=== PATIENT | female | born 1995 | race Caucasian/White ===

== ENCOUNTER 2022-12-05 05:12 | Emergency (ER) | payer BC, SELFPAY ==
[2022-12-05 05:14] VITALS: BP 128/96; PULSE 89; RESP 16; TEMP 36.6; O2SAT 98; BMI 23.4
--- NOTE | 2022-12-05 05:34 | EX.ED.DYSGE1 ---
HPI History of Present Illness Chief Complaint: Abd Pain Informant: patient Onset/Context/Timing Onset: Yesterday Context: Gradual Onset Current Severity: Moderate Maximum Severity: Severe Narrative Narrative: Patient presents with epigastric abdominal pain and is concerned that she is having a pancreatitis flare. She is a history of idiopathic pancreatitis and has had multiple work-ups with no definitive cause. She states this particular episode started about 24 hours ago. Usually she will follow a bland diet go about her business and pain will subside, however patient states this episode is persisting. She has had nausea but no vomiting. [facility] Medical History Pancreatitis Home Medications hydrocodone-acetaminophen 5-325mg 5mg-325mg 1 tab PO Q6H PRN PRN Pain 3 days #10 TABLETS 12/05/22 [Rx Last Taken Unknown] ondansetron 4 mg disintegrating tablet 4 mg PO Q8H PRN PRN Nausea #10 tabs 12/05/22 [Rx Last Taken Unknown] Allergy/AdvReac Type Severity Reaction Status Date / Time morphine Allergy Itching Verified 12/05/22 05:13 Surgical History no surgical history Social History Smoking Status: Never smoker ROS ROS ED Constitutional Constitutional ED: Denies chills or fever(s) Eyes Eyes: Denies change in vision or discharge from eye(s) ENT ENT ED: Denies discharge from eye(s), rhinorrhea or sore throat Cardiovascular Cardiovascular: Denies chest pain or palpitations Respiratory/Chest Respiratory/Chest: Denies cough or dyspnea Gastrointestinal Gastrointestinal: Reports abdominal pain and nausea; Denies diarrhea or vomiting Genitourinary Genitourinary ED: Denies dysuria Musculoskeletal Musculoskeletal: Denies back pain or extremity pain Integumentary Denies Abrasions or rash Neurologic Neurologic: Denies headache(s) or weakness Psychiatric Psychiatric: Denies anxiety or depression Allergic/Immunologic Allergic/Immunologic ED: Denies lip swelling or urticaria EXAM Physical Exam Const Vital Signs: 12/05/22 05:14 Temperature 97.8 F Temperature Source Temporal Pulse Rate 89 Respiratory Rate 16 Blood Pressure 128/96 H Blood Pressure Mean 106 Pulse Ox 98 Oxygen Delivery Method Room Air Positive well nourished and well developed General Appearance ED: well developed HEENT Reports normocephalic and head/scalp atraumatic Eyes PERRL and EOMs intact bilaterally Neck supple Chest Wall inspection of chest normal and palpation of chest normal Resp normal respiratory effort and clear to auscultation bilaterally Cardio regular rate and regular rhythm GI GI Narrative: Epigastric abdominal tenderness to palpation. No guarding or rebound. Hypoactive bowel sounds noted. Palpation: soft Back/Spine no CVA tenderness Extremity normal to inspection Neuro oriented x3 and no sensory deficits noted Sensorium / Orientation: alert Motor Exam: strength 5/5 throughout Psych Mood & Affect: tearful Skin no rashes or lesions noted MDM MDM MDM Narrative Medical decision making narrative: Patient was given a small dose of Dilaudid and Zofran along with IV fluids. Labwork obtained to evaluate for leukocytosis, anemia, and electrolyte derangement. Lab Data Attestation: I reviewed the patient's lab results. Labs: Laboratory Results - last 24 hr 12/05/22 12/05/22 12/05/22 05:36 05:36 05:36 WBC 5.6 RBC 4.45 Hgb 13.8 Hct 41.1 MCV 92.4 MCH 31.0 MCHC 33.6 RDW Std Deviation 40.6 RDW Coeff of Deepthi 12.0 Plt Count 250 MPV 9.7 Immature Gran % (Auto) 0.200 Neut % (Auto) 58.3 Lymph % (Auto) 17.8 L Crook % (Auto) 17.6 H Eos % (Auto) 5.4 H Baso % (Auto) 0.7 Absolute Neuts (auto) 3.2 Absolute Lymphs (auto) 0.99 Nucleated RBC % 0 Sodium 140 Potassium 3.8 Chloride 111 H Carbon Dioxide 21.0 Anion Gap 8 BUN 12 Creatinine 0.66 Estim Creat Clear Calc 102.16 Est GFR (MDRD) Af Amer 139 Est GFR (MDRD) Non-Af 115 BUN/Creatinine Ratio 18.2 Glucose 105 Calcium 8.5 Total Bilirubin 0.30 Direct Bilirubin 0.10 AST 13 L ALT 13 Alkaline Phosphatase 54 Total Protein 6.9 Albumin 3.7 Globulin 3.2 Lipase 89 Serum , Qual NEGATIVE Differential Diagnosis Abdominal Pain: Cholecystitis Reason(s) Cholecystitis less likely: clinical exam does not support and Pancreatitis Reason(s) Pancreatitis less likely: NL lab values Treatment and Re-Evaluation :: CBC and chemistry studies are unremarkable. LFTs and lipase are normal at this time. On repeat evaluation patient does feel somewhat improved. Test results are discussed with her. Her lipase is currently normal, however it is possible with chronic pancreatitis that we do not see significant rise in her lipase. She understands this. At this point she is tolerating p.o. We will write her for pain and nausea medicine at home. She will be referred to GI locally as she had previously been seen at [facility] in [place]. Return instructions are given. Discharge Plan Triage Chief Complaint: Abd Pain ED Provider: Starla Talbert Dx/Rx/DC Orders Clinical Impression: Acute epigastric pain, History of pancreatitis Instructions: ED Abdominal Pain Unkn Cause Fem Prescriptions: New hydrocodone-acetaminophen 5-325 mg tablet 1 tab PO Q6H PRN PRN (Reason: Pain) 3 Days Qty: 10 0RF ondansetron 4 mg tablet,disintegrating 4 mg PO Q8H PRN PRN (Reason: Nausea) Qty: 10 0RF Primary Care Provider: Care Physician,No Primary Referrals: Friend,Jamey, DO [Med Staff - Active Staff] - As Needed Care Physician,No Primary [Primary Care Provider] - Disposition Disposition: Home, Self Care
[2022-12-05] MEDS: 0.9% Normal Saline 1,000 ML 1000 ML IV (05:43)
[2022-12-05] MEDS: Ondansetron 4 MG/2 ML Vial IV (05:43)
[2022-12-05 05:45] LABS: Absolute Lymphocyte Count 0.99 X10^3/uL (0.83-4.51); Absolute Neutrophil Count 3.2 X10^3/uL (2.0-7.7); Basophil# 0.04 X10^3/uL; Basophil% 0.7 % (0-1); Eosinophils% 5.4 % (0-5); Hematocrit 41.1 % (37-47); Hemoglobin 13.8 g/dL (12.0-15.0); Lymphocyte # 0.99 X10^3/ul (0.83-4.51); Lymphocyte % 17.8 % (19-41); Mean Corp Hgb Conc 33.6 g/dL (32-36); Mean Corpuscular Volume 92.4 fL (81-99); Mean Platelet Vol. 9.7 fl (6.2-12.0); Monocyte# 0.98 X10^3/uL; Monocyte% 17.6 % (0-10); NRBC Flagged by Analyzer 0 % (0-5); Neutrophil # 3.24 X10^3/uL (2.7-7.7); Neutrophil % 58.3 % (47-70); Platelet Count 250 K/mm3 (150-450); RBC Distribution Width SD 40.6 fl (35.1-43.9); Red Blood Count 4.45 M/mm3 (4.2-5.4); White Blood Count 5.6 K/mm3 (4.4-11.0)
[2022-12-05] MEDS: HYDROmorphone 1 MG/ML Syringe 0.5 MG IV (05:45)
[2022-12-05 06:03] LABS: Internal QC Validated? YES +Cl - CLEAR BKGD; Pregnancy, Serum, hCG Quali. NEGATIVE Negative
[2022-12-05 06:04] LABS: AST(SGOT) 13 U/L (15-37); Alanine Aminotransfer ALT/SGPT 13 U/L (13-56); Albumin, Serum 3.7 g/dL (3.2-5.0); Alkaline Phosphatase 54 U/L (45-117); Anion Gap 8 (5-15); BUN 12 mg/dL (7-18); BUN/Creat Ratio 18.2 RATIO (10-20); Calcium,Total 8.5 mg/dL (8.5-10.1); Chloride 111 mmol/L (98-107); Creatinine, Serum 0.66 mg/dL (0.55-1.02); EST Glomerular Filtration Rate 115 mL/min (>60); Est Glom Filt Rate - Afr Amer 139 mL/min (>60); Estimated Creatinine Clearance 102.16 ml/min; Globulin 3.2 g/dL (2.2-4.2); Glucose 105 mg/dL (74-106); Lipase 89 U/L (73-393); Potassium 3.8 mmol/L (3.5-5.1); Protein, Total 6.9 g/dL (6.4-8.2); Sodium Level 140 mmol/L (136-145)
== END 2022-12-05 07:06 | disposition home or self-care (01) ==
PROVIDERS: Emergency Provider Emergency Medicine; Visit Provider Emergency Medicine
DX: R10.13 Epigastric pain (principal); R11.0 Nausea; Z87.19 Personal history of other diseases of the digestive system
CPT/HCPCS: 80048; 80076; 83690; 84703; 85025; 96361; 96374; 96375; 99282; J7030; A4216; J2405